=== PATIENT | female | born 1990 | race Two or more races ===

== ENCOUNTER 2016-07-10 19:06 | Observation (INO) | payer MEDICAID ==
[2016-07-14] MEDS ORDERED: PREN-96 PO (09:30)
== END 2016-07-10 20:30 | disposition home or self-care (01) | DRG 566 ==
LOC: LDRP 19:06
PROVIDERS: ADMIT Specialist; ATTEND Specialist
DX: O26.893 Other specified pregnancy related conditions, third trimester (principal); Z3A.39 39 weeks gestation of pregnancy
CPT/HCPCS: 59025; 76818; 81002; G0378